=== PATIENT | female | born 1965 | race Caucasian/White ===

== ENCOUNTER 2019-04-02 10:53 | Emergency (ER) | payer BC, OTHER ==
[~2019-04-02] VITALS: Ht 160 cm; Wt 61.0 kg
[2019-04-02] MEDS ORDERED: SODIUM CHLORIDE 0.9% 1,000 ML IV ONE (15:17)
[2019-04-02] MEDS ORDERED: ONDANSETRON HCL 4MG/2ML INJ IV STA (15:17)
[2019-04-02 15:38] LABS: HEMATOCRIT. 38.1 % (36.0-48.0); HEMOGLOBIN. 13.1 g/dL (12.0-16.0); MEAN CORPUSCULAR HEMOGLOBIN 31.5 pg (28.0-32.0); MEAN CORPUSCULAR VOLUME 91.9 fL (81.0-99.0); MEAN PLATELET VOLUME 8.5 fl (7.4-10.4); PLATELET 169 x1000/uL (130-400); RED BLOOD CELL COUNT 4.14 mill/uL (4.2-5.4); RED CELL DISTRIBUTION WIDTH 12.8 % (11.6-14.6)
[2019-04-02 15:51] LABS: CHLORIDE 110 mEq/L (98-107)
[2019-04-02 15:57] LABS: PLATELET ESTIMATE NORMAL
[2019-04-02 16:45] VITALS: BP 114/75
== END 2019-04-02 17:20 | disposition home or self-care (01) ==
LOC: ER 10:53
DX: R11.2 Nausea with vomiting, unspecified (principal); R19.7 Diarrhea, unspecified; K64.4 Residual hemorrhoidal skin tags
CPT/HCPCS: 36415; 80053; 83690; 85025; 96361; 96374; 99283; J2405; J7030

== ENCOUNTER 2021-04-15 20:51 | Emergency (ER) | payer BC ==
[~2021-04-15] VITALS: Ht 160 cm; Wt 62.0 kg
[2021-04-16] LABS: CHLORIDE 109 mEq/L (98-107)
[2021-04-16 00:05] LABS: BASOPHILS % 0.5 % (0.0-2.0); EOSINOPHILS % 0.1 % (0.0-5.0); HEMATOCRIT. 39.4 % (36.0-48.0); HEMOGLOBIN. 13.8 g/dL (12.0-16.0); LYMPHOCYTES % 15.5 % (20.0-50.0); MEAN CORPUSCULAR HEMOGLOBIN 31.6 pg (28.0-32.0); MEAN CORPUSCULAR VOLUME 90.2 fL (81.0-99.0); MEAN PLATELET VOLUME 7.9 fl (7.4-10.4); NEUTROPHILS % 79.9 % (40.0-76.0); PLATELET 234 x1000/uL (130-400); RED BLOOD CELL COUNT 4.37 mill/uL (4.2-5.4); RED CELL DISTRIBUTION WIDTH 12.8 % (11.6-14.6)
[2021-04-16 00:48] VITALS: BP 124/76
== END 2021-04-16 00:48 | disposition home or self-care (01) ==
LOC: ER 21:52
DX: R00.2 Palpitations (principal); R53.1 Weakness; R11.0 Nausea
CPT/HCPCS: 36415; 80053; 84443; 85025; 93005; 99284